=== PATIENT | female | born 1980 | race African-American/Black ===

== ENCOUNTER 2023-08-11 08:57 | Emergency (ER) | payer SELFPAY ==
[2023-08-11 09:07] VITALS: BP 121/53; BP 126/74; PULSE 70; PULSE 80; RESP 16; TEMP 36.9; O2SAT 98; BMI 21.9
--- NOTE | 2023-08-11 09:12 | PC.NURSE ---
EMS reports bystander called due to be slumped over on sidewalk, no narcan given per EMS. Pt was eating bowl of cereal when they arrived, has periods of decreased responsiveness but does wake up to verbal stimuli. No interventions by EMS. Pt changing over with security. VSS.
--- NOTE | 2023-08-11 09:26 | ED_ITS ---
HPI - General Adult General Chief complaint: Overdose Stated complaint: FOUND UNRESP BY FAM,RESOLVED,?DRUGS,NO NARCAN Time Seen by Provider: 08/11/23 09:26 Source: patient and EMS Mode of arrival: EMS Limitations: no limitations History of Present Illness HPI narrative: Patient is a 43 year old assigned female at with a history of chronic pain presenting to the emergency department today after her aunt called 911 for finding her crying next to her cereal. Patient states that she was in a lot of pain this morning, crying at the breakfast table, while eating cereal when her aunt called 911. Patient denies any drug use. Patient states that everything hurts chronically for her and she does not have any current complaints. Patient states that she would like to finish her coa coa puffs. Patient denies any d izziness, lightheadedness, abdominal pain, nausea, vomiting, fever, chills, blurry vision, double vision, loss of vision, chest pain, difficulty breathing, shortness of breath, back pain, night sweats, pain with urination, increased urinary frequency, increased urinary urgency, blood in her urine or stool, syncope or a near syncopal episode, recent trauma or falls, bowel incontinence, bladder incontinence, bowel retention, bladder retention, or any other complaints at this time. Relieving factors: none Exacerbating factors: none Associated symptoms: denies other symptoms Treatments prior to arrival: none Related Data Allergies Allergy/AdvReac Type Severity Reaction Status Date / Time No Known Allergies Allergy Verified 08/11/23 09:29 Review of Systems Constitutional: Constitutional: Reports no additional constitutional complaints, Denies chills, Denies fever(s) and Denies night sweats Eyes: Eyes: Reports no additional eye complaints, Denies blurry vision, Denies change in vision, Denies diplopia, Denies eye discharge, Denies loss of vision and Denies eye pain ENT: Denies dizziness Cardiovascular: Cardiovascular: Reports no additional cardiovascular complaints, Denies chest pain, Denies lightheadedness, Denies Loss of Consciousness and Denies dyspnea Respiratory: Respiratory: Reports no additional respiratory complaints and De nies dyspnea Gastrointestinal: Gastrointestinal: Reports no additional gastrointestinal complaints, Denies abdominal pain, Denies melena, Denies hematochezia, Denies change in bowel habits and Denies change in stool character Genitourinary: Genitourinary: Denies hematuria, Denies urinary frequency, Denies dysuria, Denies urinary incontinence, Denies urinary hesitancy and Denies urinary urgency Musculoskeletal: Musculoskeletal: Reports no additional musculoskeletal complaints, Denies numbness and Denies tingling Neurologic: Denies dizziness, Denies loss of vision, Denies numbness and Denies tingling Psychiatric: Psychiatric: Reports no additional psychiatric complaints Endocrine: Endocrine: Reports no additional endocrine complaints Hematologic/Lymphatic: Hematologic/Lymphatic: Reports no additional hematologic/lymphatic complaints Allergic/Immunologic: Allergic/Immunologic: Reports no additional allergic/immunologic complaints [facility] Past Medical History Attestation statement: The following information was validated with the patient. Source: old records reviewed and nursing notes reviewed Social History Social History Smoked in Last 30 Days: Yes Substance Use Type: Former Substance User Physical Exam ED Vital Signs: Vital Signs - 24 hr 08/11/23 09:07 08/11/23 09:29 08/11/23 10:19 Temperature 98.4 F 98.4 F Pulse Rate 70 70 68 Respiratory Rate 16 16 16 Blood Pressure 121/53 L 121/58 L Pulse Oximetry 98 99 98 Oxygen Delivery Method Room Air Room Air Room Air 08/11/23 13:26 Temperature Pulse Rate 75 Respiratory Rate 15 Blood Pressure 137/68 Pulse Oximetry 98 Oxygen Delivery Method Room Air BMI result Body Mass Index 21.9 Const General: cooperative, no acute distress, alert and awake Nutritional Appearance: well nourished Orientation/consciousness: patient oriented x3 Limitations: no limitations HENGA Head: Yes normal to inspection and Yes atraumatic Ears: hearing grossly normal bilaterally and external ears normal General nose exam: Normal external nose present, no nasal discharge noted and no epistaxis Face and sinus: Yes normal facial exam, No abrasion and No laceration Mouth: Normal oral and palatal mucosa present, no drooling and no muffled voice Eyes General: appearance normal, both eyes and all related structures Periorbital: periorbital findings normal Eyelids: Yes eyelids normal Conjunctivae: conjunctivae normal Pupils: Equal, round and reactive pupils present EOM: EOMs intact bilaterally Neck Neck: Yes normal visual inspection, Yes full ROM and Yes no lymphadenopathy Chest Chest palpation & inspection: normal inspection of the chest Resp Effort & Inspection: normal respiratory effort and able to speak in complete sentences GI Inspection: Yes normal to inspection Neuro General: patient oriented x3 and moves all extremities Cranial nerves: Yes Equal, round and reactive pupils present Cognition (Neuro): normal cognition Motor exam (neuro): 5/5 motor strength present throughout Sensory Exam: Normal double simultaneous stimulation for sensation Coordination: [id number] test normal Extrem General: Yes normal to inspection, Yes full ROM and Yes capillary refill normal Psych Appearance: grossly normal Mental Status: mental status grossly normal Affect: normal affect Attitude: cooperative Thought process: Normal thought process present Thought content: Normal thought content present Insight: Good insight present (Psych) Medications Administered Discontinued Medications Generic Name Dose Route Start Last Admin Trade Name Rodríguez PRN Reason Stop Dose Admin Lorazepam 2 mg 08/11/23 09:29 08/11/23 13:01 Lorazepam 1 Mg Tablet PO 08/11/23 09:30 Not Given ONCE ONE Medical Decision Making Medical Decision Making MDM Narrative: Patient is a 43 year old assigned female at with a history of chronic pain presenting to the emergency department today for an evaluation. Patient's physical exam was unremarkable. I explained my physical exam findings to the patient. I answered all questions asked by the patient. I offered the patient a dose of ativan to help calm her and help with her chronic pain. Patient stated that she wanted to finish her coa coa puffs and nap. Patient successfully completed her coa coa puffs and rested for multiple hours. I stressed the importance of the patient taking her medication as prescribed. I stressed the importance of the patient following up with her primary care provider. I stressed the importance of the patient returning to the emergency department i mmediately if she were to develop any dizziness, shortness of breath, difficulty breathing, chest pain, blurry vision, loss of vision, nausea, vomiting, abdominal pain, fever, chills, back pain, or any other complaints. Patient verbalized agreement and understanding with this treatment plan and discharge. Differential Diagnosis Differential Diagnoses: The differential diagnosis associated with the presentation includes Chronic pain Normal medical evaluation Admission/Observation Consideration of admission/observation: Escalation of care including admission/observation considered Patient would have been admitted to the hospital had her clinical presentation warranted hospital admission. Independent Historian Clinical information obtained from an independent historian. History obtained from or confirmed by: EMS (EMS provided additional history and confirmed the history provided by the patient.) Tests considered The following testing was considered but not selected: CBC, CMP, UDS, UA were all considered however, the patient is alert and oriented x4 with no complaints at this time therefore, this work up is not warranted. I discussed this with the patient who verbalized understanding and agreement. Chronic Conditions Patient?s care impacted by: Other (chronic pain) Discharge Plan Discharge Clinical Impression: Chronic pain Patient Disposition: Home, Self-Care Instructions: Chronic Pain (ED) Additional Instructions: Follow up with your primary care provider. Return to the emergency department immediately if you develop any dizziness, shortness of breath, difficulty breathing, chest pain, blurry vision, loss of vision, nausea, vomiting, abdominal pain, fever, chills, back pain, or any other complaints. [place]: [facility] [place] [facility] [place] (Call to establish and follow up with a primary care provider. If you already have a primary care provider, please follow up with them.) [facility] [place] [facility] [place] (Call to establish and follow up with a primary care provider. If you already have a primary care provider, please follow up with them.) [facility] [place] [facility] [Provider Group] (Call to establish and follow up with a primary care provider. If you already have a primary care provider, please follow up with them.) Print Language: [place]
[2023-08-11 09:29] VITALS: BP 121/58; PULSE 70; RESP 16; TEMP 36.9; O2SAT 99
--- NOTE | 2023-08-11 09:32 | PC.NURSE ---
Pt reports her aunt called for the ambulance because she was in a lot of pain. Pt reports chronic full body pain, reports it feels like muscle spasms. Denies any recent illnesses or falls (last fall 2 months ago). Pt denies alcohol or drug use today, reports she is a previous drug user. Pt denies SI or HI. Reports pain all over is 10/10.
[2023-08-11 10:19] VITALS: PULSE 68; RESP 16; O2SAT 98
--- NOTE | 2023-08-11 10:19 | PC.NURSE ---
Ativan withheld at this time due to pt sleeping, provider aware. Pt sleeping, SPO2 monitored and remains 96-99% on RA.
[2023-08-11 13:26] VITALS: BP 137/68; PULSE 75; RESP 15; O2SAT 98
[2023-08-11 16:10] VITALS: BP 139/81; PULSE 88; RESP 16; TEMP 36.6; O2SAT 96
== END 2023-08-11 16:20 | disposition home or self-care (01) ==
PROVIDERS: Emergency Provider Emergency Medicine
DX: G89.29 Other chronic pain (principal)
CPT/HCPCS: 99284